=== PATIENT | female | born 1945 | race Caucasian/White ===

== ENCOUNTER 2018-02-25 02:20 | Outpatient (CLI) | payer OTHER, SELFPAY ==
[2018-02-25 11:19] LABS: Cholesterol 257 mg/dL (50-200); HDL Cholesterol 43 mg/dL (40-60); LDL CHOLESTEROL 175 mg/dL (<100); Triglyceride 198 mg/dL (30-150)
== END 2018-02-25 02:21 ==
PROVIDERS: PCP Family Medicine; Visit Provider Family Medicine
DX: E78.5 Hyperlipidemia, unspecified (principal)
CPT/HCPCS: 36415; 80061; 83721

== ENCOUNTER 2019-03-23 01:15 | Outpatient (CLI) | payer OTHER, SELFPAY ==
[2019-03-23 08:55] LABS: Hemoglobin A1C 5.6 % (4.5-6.2)
[2019-03-23 09:11] LABS: Calculated LDL 133 mg/dL; Cholesterol 221 mg/dL (50-200); HDL Cholesterol 34 mg/dL (40-60); Triglyceride 272 mg/dL (30-150)
== END 2019-03-23 01:35 ==
PROVIDERS: PCP Family Medicine; Visit Provider Nurse Practitioner
DX: Z13.1 Encounter for screening for diabetes mellitus (principal); E78.5 Hyperlipidemia, unspecified
CPT/HCPCS: 36415; 80061; 83036

== ENCOUNTER 2019-04-20 00:46 | Outpatient (CLI) | payer OTHER, SELFPAY ==
--- NOTE | 2019-04-20 16:12 | DI.MAMMO_ITS ---
EXAM: MG MAMMO SCREENING CLINICAL HISTORY: screening Z12.31. TECHNIQUE: Bilateral full field digital CC and MLO mammographic images were obtained with 3D tomosyn thesis and utilizing computer aided detection (CAD). COMPARISON: There are multiple priors with the most recent from 01/23/2017. FINDINGS: Masses/Architectural Distortion: None seen. Microcalcifications: No suspicious pleomorphic-type are seen. IMPRESSION: 1. No significant interval change with no specific features of malignancy noted. 2. Unless there is more urgent need, screening mammography is recommended, as per [employer] guidelines. ACR BI-RAD Category- 1 Negative Breast Density - Category B - Scattered areas of fibroglandular density A negative radiographic report should not delay biopsy if a dominant or clinically suspicious mass is present. Up to ten percent of cancers are not identified on mammography. A negative report may reinforce clinical impression. Adenosis and dense breasts may obscure an underlying neoplasm. False positive reports average 6 to 10%.
--- NOTE | 2019-04-20 16:12 | DI.DEXA_ITS ---
EXAM: XR DEXA BONE DENSITY W/WO LUIS EDUARDO INDICATION: SCREENING FOR OSTEOPOROSIS Z13.820. COMPARISON: No exams were available for comparison TECHNIQUE: 2D digital imaging was performed. FINDINGS: The lateral spine film shows no compression deformities. Evaluation of the left hip shows a total T-score of -2.6 and a Z-score of -0.9. This is consistent w ith osteoporosis and high fracture risk. Evaluation of the lumbar spine shows a total T-score of -1.6 and a Z-score of 0.6. This is consisten t with osteopenia and increased fracture risk. IMPRESSION: Osteoporosis in the left hip.
== END 2019-04-20 01:06 ==
PROVIDERS: PCP Family Medicine; Visit Provider Nurse Practitioner
DX: Z12.31 Encounter for screening mammogram for malignant neoplasm of breast (principal); Z13.820 Encounter for screening for osteoporosis
CPT/HCPCS: 77063; 77067; 77080

== ENCOUNTER 2020-03-16 04:33 | Outpatient (CLI) | payer OTHER, SELFPAY ==
[2020-03-16 13:43] LABS: BUN 22 mg/dL (7-18); CREATININE 0.87 mg/dL (0.55-1.02); Calcium 9.1 mg/dL (8.5-10.1); Calculated LDL 166 mg/dL (<100); Chloride 106 mmol/L (98-107); Cholesterol 245 mg/dL (<200); Glucose 92 mg/dL (74-106); HDL Cholesterol 43 mg/dL (40-60); Potassium 4.1 mmol/L (3.5-5.1); Sodium 141 mmol/L (136-145); Triglyceride 183 mg/dL (<150)
== END 2020-03-16 04:53 ==
PROVIDERS: PCP Family Medicine; Visit Provider Family Medicine
DX: I10 Essential (primary) hypertension (principal); E78.5 Hyperlipidemia, unspecified
CPT/HCPCS: 36415; 80048; 80061

== ENCOUNTER 2021-03-13 04:59 | Outpatient (CLI) | payer OTHER, SELFPAY ==
[2021-03-13 10:18] LABS: ALT 15 U/L (14-59); AST 13 U/L (15-37); Alkaline Phosphatase 77 U/L (46-116); Anion Gap 8.8 mmol/L (3-11); BUN 12 mg/dL (7-18); Bilirubin, Total 0.4 mg/dL (0.2-1.0); CO2 29.2 mmol/L (21.0-32.0); CREATININE 0.9 mg/dL (0.55-1.02); Calcium 9.6 mg/dL (8.5-10.1); Calculated LDL 145 mg/dL (<100); Chloride 104 mmol/L (98-107); Cholesterol 229 mg/dL (<200); Glucose 98 mg/dL (74-106); HDL Cholesterol 46 mg/dL (40-60); Potassium 4.3 mmol/L (3.5-5.1); Sodium 142 mmol/L (136-145); Total Protein 7.8 g/dL (6.4-8.2); Triglyceride 191 mg/dL (<150)
== END 2021-03-13 05:00 | disposition home or self-care (01) ==
LOC: LBO 04:59
DX: E78.5 Hyperlipidemia, unspecified (principal)
CPT/HCPCS: 36415; 80053; 80061

== ENCOUNTER 2021-03-20 01:21 | Outpatient (CLI) | payer OTHER, SELFPAY ==
--- NOTE | 2021-03-20 11:32 | DI.MAMMO_ITS ---
Exam(s) MAMMO SCREENING EXAM: MAMMO SCREENING CLINICAL HISTORY: screening,Z12.39 TECHNIQUE: Bilateral full field digital CC and MLO mammographic images were obtained with 3D tomosyn thesis and utilizing computer aided detection (CAD). COMPARISON: Available for comparison. FINDINGS: Masses/Architectural Distortion: None seen. Microcalcifications: No suspicious pleomorphic-type are seen. Skin Thickening/Nipple Retraction: None. IMPRESSION: 1. No significant interval change with no specific features of malignancy noted. 2. Unless there is more urgent need, screening mammography is recommended, as per [employer] guidelines. BI-RADS Category 1 - Negative Breast Density - Category B - Scattered areas of fibroglandular density Breast density category C or D implies that the patient has dense breast tissue. Dense breast tissue is very common and is not abnormal but dense breast tissue can make it harder to find cancer on a ma mmogram. Also, dense breast tissue may increase their breast cancer risk. This information about the result of the mammogram report was provided to the patient to raise their awareness. Use this report when you speak with the patient about their risks for breast cancer, which includes their family hist ory. At that time, you may recommend for more screening tests (Ultrasound or MRI) as they might be us eful based on their risk. A negative radiographic report should not delay biopsy if a dominant or clinically suspicious mass is present. Up to ten percent of cancers are not identified on mammography. A negative report may reinforce clinical impression. Adenosis and dense breasts may obscure an underlying neoplasm. False positive reports average 6 to 10%. Patient will receive a letter notifying them of these results.
== END 2021-03-20 01:41 ==
DX: Z12.31 Encounter for screening mammogram for malignant neoplasm of breast (principal)
CPT/HCPCS: 77063; 77067

== ENCOUNTER 2021-06-08 01:47 | Outpatient (CLI) | payer MEDICARE, SELFPAY ==
--- NOTE | 2021-06-08 10:23 | DI.RAD_ITS ---
Exam(s) XR KNEE LT 3V AP,LAT,BHUPINDER EXAM: XR KNEE LT 3V AP,LAT,BHUPINDER CLINICAL HISTORY: left knee pain, M25.562. TECHNIQUE: 2D digital imaging was performed. Three weightbearing views. COMPARISON: No exams were available for comparison FINDINGS: BONES: No acute fracture is present. No bony destructive lesion is seen. JOINTS: Severe narrowing of the medial femoral tibial joint, periarticular spurring and sclerosis. M ild spurring lateral femoral tibial joint and patellofemoral joint. Question of a small joint effusi on. SOFT TISSUE: Normal. 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 DATA REPOSITORY: RADIATION DOSE DELIVERED:
== END 2021-06-08 02:07 ==
DX: M25.562 Pain in left knee (principal); M17.12 Unilateral primary osteoarthritis, left knee
CPT/HCPCS: 73562

== ENCOUNTER → 2021-08-14 10:24 | Outpatient (BNVA) | payer MEDICARE, SELFPAY | PROVIDERS: Visit Provider Student in an Organized Health Care Education/Training Program | DX: M17.12 Unilateral primary osteoarthritis, left knee (principal) | CPT/HCPCS: 99203 ==

== ENCOUNTER 2022-02-15 09:46 | Outpatient (CLI) | payer MEDICARE, SELFPAY ==
--- NOTE | 2022-02-15 09:30 | DI.RAD_ITS ---
Exam(s) XR STANDING ALIGNMENT EXAM: XR STANDING ALIGNMENT CLINICAL HISTORY: eval alignment for TKA. TECHNIQUE: 2D digital imaging was performed. Four images were obtained. COMPARISON: CR XR KNEE LT 3V AP,LAT,BHUPINDER from 06/08/2021 FINDINGS: BONES: The hips are well maintained. There are marked degenerative changes again seen in the medial femoral tibial joint of the left knee. There is joint space narrowing and periarticular spurring pre sent. The right knee is well maintained. The ankles are well maintained.There is no significant leg length discrepancy. SOFT TISSUE: Normal. IMPRESSION: Marked osteoarthritis of the left knee. DATA REPOSITORY: RADIATION DOSE DELIVERED:
== END 2022-02-15 09:47 | disposition home or self-care (01) ==
LOC: DIORS 09:46
PROVIDERS: Visit Provider Student in an Organized Health Care Education/Training Program
DX: M17.12 Unilateral primary osteoarthritis, left knee (principal)
CPT/HCPCS: 99213; 77073

== ENCOUNTER 2022-02-18 02:30 | Outpatient (CLI) | payer MEDICARE, SELFPAY ==
[2022-02-18 14:53] LABS: Source Nasal/Nares
[2022-02-18 16:43] LABS: COVID-19 PCR Negative (Negative)
== END 2022-02-18 02:31 | disposition home or self-care (01) ==
LOC: LBO 02:30
PROVIDERS: Visit Provider Student in an Organized Health Care Education/Training Program
DX: Z20.822 Contact with and (suspected) exposure to COVID-19 (principal); Z01.818 Encounter for other preprocedural examination
CPT/HCPCS: 87635

== ENCOUNTER 2022-02-18 04:11 | Outpatient (CLI) | payer MEDICARE, SELFPAY ==
[2022-02-18 14:58] LABS: HCT 39.8 % (36.0-46.0); HGB 13.2 g/dL (11.2-15.7); MCH 29.1 pg (27.0-33.0); MCHC 33.2 % (32.0-36.0); MCV 88 fL (80-95); MPV 10.1 fL (8.0-11.0); Platelet Count 279 10^3/uL (130-400); RBC 4.54 10^6/uL (3.93-5.22); RDW-SD 38.9 fL
[2022-02-18 15:16] LABS: Anion Gap 11.2 mmol/L (3-11); BUN 19 mg/dL (7-18); CO2 24.8 mmol/L (21.0-32.0); Calcium 9.5 mg/dL (8.5-10.1); Chloride 101 mmol/L (98-107); Estimated GFR 54.05 (mL/min/1.73m2); Glucose 101 mg/dL (74-106); Sodium 137 mmol/L (136-145)
== END 2022-02-18 04:12 | disposition home or self-care (01) ==
PROVIDERS: Visit Provider Student in an Organized Health Care Education/Training Program
DX: M25.562 Pain in left knee (principal); M17.12 Unilateral primary osteoarthritis, left knee; Z01.818 Encounter for other preprocedural examination; Z01.812 Encounter for preprocedural laboratory examination
CPT/HCPCS: 36415; 80048; 85027

== ENCOUNTER 2022-02-20 06:55 | Day surgery (SDC) | payer MEDICARE, SELFPAY ==
[2022-02-20] VITALS (8 sets, daily range): BP systolic 89–138; BP diastolic 55–88; PULSE 72–87; RESP 12–19; TEMP 36–36.8; O2SAT 95–99; BMI 25.4
--- NOTE | 2022-02-20 06:58 | W.ANESPRE ---
General Info Date of Service Date Performed: 02/20/22 Height: 5 ft 3 in Weight: 65.317 kg Body Mass Index (BMI): 25.4 Surgical Procedure: Operation Date: 02/20/22 09:10 Proposed Procedure Side Surgeon p Knee Total Arthroplasty, Cemented CR Left Ronnell Mcintosh MD Meds Allergies and Home Medications Allergies Allergy/AdvReac Type Severity Reaction Status Date / Time No Known Allergies Allergy Verified 02/20/22 07:19 Home Medication Medication Instructions Recorded cholecalciferol (vitamin D3) 125 125 mcg PO DAILY 02/29/20 mcg (5,000 unit) capsule vitamin K2 40 mcg tablet 40 mcg PO DAILY 02/29/20 calcium carbonate 600 mg calcium 900 mg PO DAILY 06/26/20 (1,500 mg) tablet Current Visit Medications: Current Medications Generic Name Dose Route Start Last Admin Trade Name Freq PRN Reason Stop Dose Admin Acetaminophen 1,000 mg 02/20/22 06:00 Acetaminophen 500 Mg Tab PO 02/20/22 16:00 PREOP GALEN Celecoxib 400 mg 02/20/22 06:00 Celecoxib 200 Mg Cap PO 02/20/22 16:00 PREOP GALEN Gabapentin 300 mg 02/20/22 06:00 Gabapentin 300 Mg Cap PO 02/20/22 16:00 PREOP GALEN Tranexamic Acid 1,000 mg/ 60 mls @ 360 mls/hr 02/20/22 06:00 Sodium Chloride IVPB 02/20/22 16:00 PREOP GALEN Ringer's Solution 1,000 mls @ 80 mls/hr 02/20/22 06:00 IV 03/21/22 23:59 INFUSION GALEN Cefazolin Sodium/Dextrose 2 gm in 50 mls @ 100 mls/hr 02/20/22 06:00 Ancef Duplex IVPB 02/20/22 16:00 PREOP GALEN IV Miscellaneous Supplies 1 each 02/20/22 06:00 Iv Access IV 03/21/22 23:59 DIRECTED GALEN Sodium Chloride 0 ml 02/20/22 06:00 Normal Saline Flush 10 Ml Syr IV 03/21/22 23:59 PRN PRN Sodium Chloride 0 ml 02/20/22 06:00 Normal Saline 10 Ml Vial IJ 03/21/22 23:59 DIRECTED PRN Sterile Water 0 ml 02/20/22 06:00 Water,Injection,Sterile 10 Ml Vial IJ 03/21/22 23:59 DIRECTED PRN [facility] Active Problems Active Problems: Problem Status Onset Code Osteoarthritis of left knee M17.12 Sciatica of left side M54.32 Hyperlipidemia E78.5 Knee pain, left M25.562 Osteoporosis M81.0 Encounter for annual physical exam Z00.00 Anxiety 12/15/12 F41.9 Dizziness and giddiness 10/05/12 R42 Hemorrhoids 12/15/12 K64.9 Tobacco Smoking/Tobacco Use Status: Never Passive smoking exposure: Yes Second hand exposure: No Alcohol Alcohol Intake: current Alcohol intake frequency: a few times a month Alcohol type: beer Substance Use Substance use: Never Substance use type: does not use Vital Signs and Lab Results Lab Results Blood Type / Crossmatch: No Data to Display Complete Blood Count: White Blood Count 10.50 10^3/uL (4.4-10.8) 02/18/22 14:54 Red Blood Count 4.54 10^6/uL (3.93-5.22) 02/18/22 14:54 Hemoglobin 13.2 g/dL (11.2-15.7) 02/18/22 14:54 Hematocrit 39.8 % (36.0-46.0) 02/18/22 14:54 Platelet Count 279 10^3/uL (130-400) 02/18/22 14:54 Complete Metabolic Panel: Sodium Level 137 mmol/L (136-145) 02/18/22 14:54 Potassium Level 4.0 mmol/L (3.5-5.1) 02/18/22 14:54 Chloride Level 101 mmol/L (98-107) 02/18/22 14:54 Carbon Dioxide Level 24.8 mmol/L (21.0-32.0) 02/18/22 14:54 Blood Urea Nitrogen 19 mg/dL (7-18) H 02/18/22 14:54 Creatinine 1.0 mg/dL (0.55-1.02) 02/18/22 14:54 Estimated GFR/1.73 m2 54.05 (mL/min/1.73m2) 02/18/22 14:54 Calcium Level 9.5 mg/dL (8.5-10.1) 02/18/22 14:54 Glucose Level 101 mg/dL (74-106) 02/18/22 14:54 Liver Function Panel: No Data to Display Coagulation Panel: No Data to Display Cardiac Panel: No Data to Display Arterial Blood Gas: No Data to Display Venous Blood Gas: No Data to Display Pancreas Panel: No Data to Display Thyroid Panel: No Data to Display Infectious Disease: Coronavirus (COVID-19)(PCR) Negative (Negative) 02/18/22 14:42 Coronavirus 2019 Source Nasal/Nares 02/18/22 14:42 Blood Cultures: No Data to Display Toxicology Panel: No Data to Display Anesthesia Assessment and Plan Anesthesia History Personal History: No History of Anesthesia Complications Family History: No Family History of Anesthesia Complications Exercise Tolerance Exercise Tolerance: Metabolic Equivalents>4 Pertinent Negatives Pertinent Negatives: No Symptoms of GERD, No Major Cardiovascular Symptoms or Complaints, No Major Pulmonary Symptoms or Complaints and No History of CVA/TIA Cardiac & Pulmonary Exam Cardiac Exam: Normal S1/S2 Heart Sounds Pulmonary Exam: Clear Bilateral Breath Sounds Implantable Cardiac Device Does patient have a Pacemaker or an ICD?: No Airway Exam Known Difficult Airway: No Mallampati Class: 3 Mouth Opening: Normal (> 3cm) Thyromental Distance: Greater than 3 cm Neck Range of Motion: Full ROM Neck Circumference: Normal Teeth Condition: Normal Dentition ASA Classification ASA Score: ASA 2 Emergency Case?: No NPO Status NPO Status: NPO Clears >2 hours, Solids >8 hours Anesthesia Plan Resuscitation Status: Full Code Anesthesia Technique: Spinal Anesthesia Airway Planned: Natural Airway Pain Management: Surgeon and patient request nerve block Monitors Used: Standard Monitors
[2022-02-20] MEDS: Acetaminophen 500 MG TAB 1000 MG PO ×2 (07:46→07:47)
[2022-02-20] MEDS: Gabapentin 300 MG CAP PO (07:46)
[2022-02-20] MEDS: Celecoxib 200 MG CAP 400 MG PO (07:47)
[2022-02-20] MEDS: Lactated Ringers 1,000 ML 80 ML IV (08:06)
--- NOTE | 2022-02-20 09:29 | W.ANESNERVE ---
Nerve Block Single Injection Procedure Date and Time Date Performed: 02/20/22 Procedure Start: 08:52 Location Where Procedure Performed Procedure Location: Day Surgery Unit Reason Performed: Postoperative Analgesia Requesting Provider: Ronnell Mcintosh Timeout Performed Timeout Performed: Yes Monitoring Used ECG, Blood Pressure, SpO2 and See EMR for corresponding vital signs Sterility Sterility: Hand Hygiene, Surgical Cap, Surgical Mask, Sterile Gloves and Chlorhexidine Sedation Given During Procedure Sedation Given (Indicate Dose Given): No Sedation given Patient Mental Status Patient Mental Status: Awake Nerve Block 1st Nerve Block: Laterality: Left Block Type: Adductor Canal Needle / Catheter Used: 100mm SonoPlex II Local Anesthetic Bolus (Indicate Dose Given): Lidocaine used for local infiltration of skin and Bupivacaine 0.25% Dose:: 15 Additives (Indicate Dose Given): Precedex Dose:: 60cmg Ultrasound: Sterile probe cover and gel used Ultrasound Image Saved?: Yes Nerve Stimulator: Not Used Paresthesia: None Post Procedure Pain score (0-10): 0 Procedure Tolerated: No Complications Procedure Outcome: Successful Performed By: Alice Cm Supervised By: Servando Power
[2022-02-20] MEDS: ceFAZolin 2 GM/50 ML BAG IVPB (09:50)
--- NOTE | 2022-02-20 11:39 | PDOC.DSDIS_ITS ---
Discharge Plan Disposition Patient Disposition: HOME Condition: Good Discharge Details Reason For Visit: Left Knee DJD Attending Provider: Ronnell Mcintosh Primary Care Provider: Alix Guerrero Home Meds and New Rx's Prescriptions: New celecoxib 200 mg capsule 200 mg PO BID PRN (Reason: pain) Qty: 60 1RF aspirin 81 mg tablet,delayed release (DR/EC) 81 mg PO BID Qty: 60 0RF acetaminophen 500 mg tablet 1,000 mg PO Q8H PRN (Reason: pain) Qty: 90 3RF pantoprazole 40 mg tablet,delayed release (DR/EC) 40 mg PO DAILY Qty: 30 0RF docusate sodium [Colace] 100 mg capsule 100 mg PO BID PRNQty: 10 0RF oxycodone 5 mg tablet 5 mg PO Q4H Qty: 15 0RF Continued cholecalciferol (vitamin D3) 125 mcg (5,000 unit) capsule 125 mcg PO DAILY vitamin K2 40 mcg tablet 40 mcg PO DAILY calcium carbonate 600 mg calcium (1,500 mg) tablet 900 mg PO DAILY l-theanine 200 mg PO DAILY Qty: 180 5RF Discharge Instructions Additional Instructions: Total Knee Discharge Instructions Activity: The most important activity is to walk. You should try to take short walks a few times a day. It is important that when resting you work on keeping the knee straight. Avoid putting a pillow behind the knee as this will encourage flexion. Work on range of motion exercises as provided by Physical Therapy. - Start outpatient physical therapy within 2 weeks. - You should wear the BERTHA hose on both legs for 2 weeks. You may remove these at night. You may also use any compression sock in place of the BERTHA hose. - Utilize [employer] to review exercises, see videos on exercises and obtain basic information pertaining to your surgery and your recovery. Dressing: Remove the Al wrap by 2 days after your surgery and put on the BERTHA stocking given to you from the hospital. Keep the surgical dressing (underneath the AL wrap) in place for at least one week. After the first week it may be removed and replaced with light gauze and tape or nothing. The wound and dressing may get wet after 3 days but avoid soaking the dressing or otherwise it will need to be changed. Many people prefer covering the dressing with cling wrap (saran wrap) to minimize it from getting soaked. If it gets wet, just pat dry. If it starts to peel off then it will need to be changed. Medications: - You should take Tylenol and anti-inflammatory Celebrex as your primary pain control medications. If the Celebrex is too expensive or not covered, please call the office for another alternative (Advil/Ibuprofen or Naproxen/Aleve) - You have been prescribed a stronger pain medication Oxycodone for breakthrough pain, take as needed as prescribed. - You have also been prescribed a stomach acid reduction agent Pantoprozole to help reduce stomach acid and reflux. - You will be taking Aspirin 81mg twice a day for DVT prevention unless instructed otherwise. - If you have constipation you should take Colace or Miralax (both [id number]). It takes most people 3-4 days to have a bowel movement. Follow-up: 2 weeks If you have any acute concerns or questions, please do not hesitate to contact the office at [phone]. You may contact Dr. Mcintosh with any questions after hours through the hospital at [phone] or on his cell phone at [phone]. Referrals: Ronnell Mcintosh MD [ [facility] STAFF PHYSICIAN] - Equipment/Supplies: Walker Activity:: Activity as Tolerated Remove Dressings/Wound Care:: Do Not Remove Shower/Bathe:: 72 hours Diet:: As Tolerated Discharge Orders Discharge Orders: Discharge Order (Routine); Ordered 02/20/22 Ordered By: Ronnell Mcintosh
--- NOTE | 2022-02-20 11:44 | W.PM.OP ---
Date of service: 02/20/22 Time of Service: 11:40 Operative Note Operative Note DATE OF PROCEDURE: 02/20/22 PRE-OP DIAGNOSIS: Left Knee Osteoarthritis POST-OP DIAGNOSIS: same PROCEDURE: Left Total Knee Replacement SURGEON: Ronnell Mcintosh SLITTER CREASER SLOTTER OPERATOR: Ronnell Mcintosh ANESTHESIA TYPE: Spinal Refer to Anesthesia Record ESTIMATED BLOOD LOSS: 150 PATHOLOGY: none sent COMPLICATIONS: None Patient was transported to: PACU Patient's condition: stable Implants: 1. Depuy Attune Cruciate Retaining Femoral Component, Size 6 2. Depuy Attune Rotating Platform Tibial Component, Size 4 3. Depuy Attune 6x8mm CR,RP Poly 4. Depuy Attune Patellar Component, Size 35 Indications: I have seen Anne in clinic for symptoms of knee arthritis, confirmed with radiographic findings. She has exhausted nonoperative methods and was having significant limitations in daily function and desired better function and less pain. I discussed the technical details of a knee replacement. I explained the risks of the procedure to include, but not limited to, bleeding, infection, pain, stiffness, fracture, damage to nerves and vessels, damage to muscles and tendons, loosening, need for repeat procedure, blood clot and cardiopulmonary demise. Despite these risks, Anne elected to proceed. Findings: There was significant signs of arthritis throughout the knee, focused mostly on the medial aspect with tibial varus. Procedure Description: Anne was greeted in the preoperative holding area where the correct side was identified and marked. The consent was reviewed with the patient and signed. The history and physical was updated. All questions were answered. Preoperative mediacations were administered: Acetaminophen 1000mg, Celebrex 400mg, and Gabapentin 300mg. An adductor canal block was then administered by the anesthesia team in the PACU. Anne was taken back to the operating room. A spinal anesthestic was then administered. The patient was placed into the supine position on the operating room table. A nonsterile tourniquet was placed high onto the leg but only used for cementing. Posts were placed for positioning during the procedure. All bony prominences were well padded. Prophylactic antibiotics in the form of Cefazolin were administered. 1g of Tranxemic Acid was given intravenously within 30 minutes of incision. The left leg was then prepped with Chloraprep and draped in a standard fashion with impervious stockinette and extremity drape. A second prep with Chloraprep was performed prior to placing Ioband. A timeout to confirm correct identity, side and site, procedure, allergies, anesthesia, and medical concerns was performed. With the knee in some flexion, a midline incision was made overlying the knee. Full thickness skin flaps were raised once the extensor mechanism was encountered. These were raised medially and laterally. Any bleeding was controlled with electrocautery. Once the extensor mechanism was fully exposed, a medial parapatellar arthrotomy was performed in a flexed position. All bleeding from the arthrotomy and the geniculate arteries was coagulated. A medial subperiosteal peel was performed with electrocautery to the midcoronal plane. Due to the significant varus deformity the entire medial tibial plateau was exposed. The fat pad was removed while keeping the patellar tendon protected. The anterior distal femur synovium was removed for later visualization. The ACL and PCL were resected and the anterior horn of the lateral meniscus was transected. The knee was then flexed with the patella everted. Large osteophytes from the tibia were removed. Large osteophytes from the femur were removed. Using a step drill, and based on preoperative templating, the femoral canal was entered. This was done with a step drill without any difficulty. The intramedullary distal femoral cut guide was inserted, set to a 6 degree valgus cut and 8mm cut thickness. The distal femoral cut guide was then held in position and pinned. With the soft tissues protected, the distal cut was performed. This was passed over a few times to ensure a planar cut. I then turned attention to the tibia. The extramedullary guide was placed onto the leg. The distal aspect was slid medial to adjust for position of center of ankle and stay in line with shaft of the tibia. Approximately 3-5 degrees of posterior slope was kept in the proximal cutting guide. The center of the guide was aligned with the PCL. The stylus was used to assess cut thickness. The medial side, most involved side, was set for a 3mm cut. This was then held in position and pinned into place with 2 additional pins and a cross pin for stability. The medial and lateral collateral ligaments were protected and the cut was performed. With this completed, it was assessed and noted to be of appropriate dimensions. The guide was removed. A spacer block was inserted and the knee was brought into extension. The 7mm spacer block provided full extension, without hyperextension and with stability of both the medial and lateral collateral ligaments was assessed. The pins from the femur and the tibia were then removed. The distal femur was then sized. The anterior stylus was placed onto the lateral ridge of the anterior femur. This indicated a size 6 femur. The external rotation of the guide was adjusted to 3 degrees to match the epicondylar axis, perpendicular to Asha?s line. The 4-in-1 cutting guide was the placed. The posterior medial femur cut was evaluated and appeared of good thickness. The spacer block was inserted underneath the cutting guide and stability was confirmed in 90 degrees of flexion. An maycol wing was used to confirm appropriate position of the anterior cut to avoid notching. This cutting guide was ensured to be flush on the cut surface and then pinned into place with headed pins. While protecting the soft tissues, quad tendon, and collateral ligaments, the anterior and posterior cuts were performed with a saw. The central two pins were removed and the posterior and anterior chamfers were cut next. The notch-cutting guide was placed. This was pinned to lateralize the femoral component as much as possible while keeping it flush on the cut surface. This was then pinned into position. A reciprocating saw was used to make the small notch cut. A trial CR femoral component was then inserted, impacted down to the cut surfaces, and the lug holes were drilled. A provisional trial tibial component was placed and the knee was brought through range of motion. The polyethylene was trialed until there was good flexion and extension with excellent stability to the medial and lateral collaterals. The patella was tracking without thumbs. The tibial cut surface was fully exposed. The medial and lateral menisci were removed. The tibia was then sized as a 4. The tibia had been previously marked during trialing to correspond to the center of the tibial component to help with rotation. The trial was aligned to this lesly, approximately rotated to the medial 1/3rd of the tibial tubercle. The trial was pinned into place. The tibia was prepared with a reamer and a keel punch. The knee was then brought into extension and the patella was measured as 22mm. Using the patellar clamp and cut guide, this was resected to a flat surface with at least 13mm of thickness remaining. The size 35 patella fit the best. This was oriented and then clamped into position. The lugs were drilled. The trial components were removed. The final components, except for the polyethylene were opened on the back table. The periosteal and capsular tissues, especially posteriorly, around the knee were then systematically injected with a periarticular cocktail consisting of 246mg of Ropivacaine, 0.5mg of Epinephrine, 0.08mg of Clonidine, and 30mg of Ketorolac, diluted to 100cc.. The tourniquet was then inflated to 275mmHg. The knee was thoroughly irrigated with a pulse lavage and dried. On the back table, with the implants opened, the cement was mixed. 2 batches of medium viscosity cement were prepared with vacuum assistance. After the cement was ready it was placed on to the back side of the tibial component. A small amount was placed onto the posterior flange of the femur. Cement was manual pressurized and impregnated into the cut surface of the tibia. The tibial component was then inserted into the cut surface and impacted into position. Excess cement was removed and the component was reimpacted. Again, excess cement was removed and our attention was then turned to the femur. The femoral cut surface was once again dried and cement was manually impacted into the cut surface. The femoral component was lined with the lug holes and impacted. Excess cement was removed. It was ensured to be down against the cut surface. The trial polyethylene was then inserted and the leg was brought out into full extension for the duration of the cement curing process, approximately 18min. Cement was lastly manually impacted into the cut surface of the patella and the patellar button was clamped into position and held. During this process attention was turned to the gutters of the knee and for all interfaces for any excess cement. While the cement was hardening, the knee was irrigated with Surgiphor Betadine solution. It was allowed to sit in the knee for 3 minutes and then it was thoroughly irrigated with saline. After the cement had finally cured, approximately 18min, the clamp was removed from the patella and the knee was taken through range of motion. A size 8mm polyethylene component provided the best range of motion and stability with less than 2mm gapping with medial and lateral stress and full extension without significant hyperextension. The patella was tracking with a no-thumbs technique. The trial poly was removed and once again the knee was checked for any loose, excess, or errant cement. The poly component was then inserted into position after cleaning and drying the tibial tray. The capsule was then reapproximated with a No. 1 Vicryl at multiple locations. The capsule was finally closed with a No. 2 Stratafix, barbed suture. The tourniquet was then released and the arthrotomy appeared watertight without significant bleeding. The second dosing of 1g TXA was started. Deep tissues were then reapproximated with 0 Vicryl and 2-0 Vicryl. The skin was closed with a running 3-0 Monocryl in a subcuticular fashion. This was reinforced with skin glue. A Mepilex silver dressing was applied along with a [id number] PIO wrap. A CryoCuff was applied. Anne was transferred to the hospital bed without difficulty an suffering no apparent complication. Anne has a good prognosis. Physical therapy will start today and without restrictions, weight-bearing as tolerated. Aspirin 81mg BID will be used for DVT prophylaxis.
--- NOTE | 2022-02-20 12:39 | W.ANESPOSTOP ---
Postoperative Evaluation Date, Time and Location Date Performed: 02/20/22 Time Performed: 12:40 Patient Location: Day Surgery Unit Vital Signs Most Recent Imported Vital Signs: Most Recent Vital Signs Temp Pulse Resp BP Pulse Ox 36.3 C L 73 16 103/69 96 02/20/22 12:10 02/20/22 12:10 02/20/22 12:10 02/20/22 12:10 02/20/22 12:10 Pain Score Most Recent Pain Score: Most Recent Pain Score Pain Level 0 02/20/22 12:10 Assessment Mental Status: Awake (Alert & Oriented to Patient Baseline) Airway and Respiratory Function: Patent airway with normal (patient baseline) respiratory exam Cardiovascular Function: Hemodynamically Stable Hydration Status: Adequately Hydrated Nausea & Vomiting: No Nausea or Vomiting Pain: Pt. Denies Any Pain Peripheral Nerve Block: Regional nerve block not resolved at time of post operative discharge
--- NOTE | 2022-02-20 13:07 | PT.INIE ---
Date of service: 02/20/22 Time of Service: 13:07 PT Notes Visit Reasons: [id number] Physical Therapy Day Surgery Initial Evaluation Date: 02/20/2022 Referring Doctor: Ronnell Mcintosh MD PT Orders: PT CONSULT: S/P Ortho surgery. S/P L TKA Precautions: WBAT on left LE with AD. Patient Profile/Admitting Diagnosis: Mariana is a 77-year-old female with degenerative joint disease of the left knee and status post left total knee arthroplasty on postoperative day 0. PMHX: All Active Problems?(Updated 08/14/21 @ 11:02 by SAAD Montes) Osteoarthritis of left knee (Acute) Sciatica of left side (Acute) Hyperlipidemia (Acute) Knee pain, left (Acute) Osteoporosis (Chronic) Hips. Osteopenia spineEncounter for annual physical exam (Acute) CPE yearly call earlier for new or concerning s/sAnxiety (Acute 12/15/12) Dizziness and giddiness (Acute 10/05/12) Hemorrhoids (Acute 12/15/12) Social History/Home Situation: Lives with in a private home with 4 steps to enter and rails on both sides. Has had no falls in the past year. Independent with all aspects of ADLs prior to surgery. Equipment Owned/DME: None Subjective: Agreeable to PT consult. [place] like her left knee was going to buckle when she initially stood up felt more after several steps. Objective: General Observation: Supine in bed. Straps to left LE. Cryocuff to left knee. Mental Status: Alert and oriented x4 Pain: 2-3/10 in the left knee ROM: Right Lower Extremity: Hip flexion WFL. Hip abduction WFL. Knee flexion 0-100 degrees. Knee extension 100 to 0 degrees ankle dorsiflexion WFL. Ankle plantarflexion WFL. Left Lower Extremity: Hip flexion WFL. Hip abduction WFL. Knee flexion WFL. Ankle dorsiflexion WFL. Ankle plantarflexion WFL. Strength: Right Lower Extremity: Hip flexors 5/5. Hip abductors 5/5. Knee flexors 4/5. Knee extensors 4/5. Ankle dorsiflexors 5/5. Ankle plantarflexors 5/5. Left Lower Extremity:Hip flexors 5/5. Hip abductors 5/5. Knee flexors 5/5. Knee extensors 5/5. Ankle dorsiflexors 5/5. Ankle plantarflexors 5/5. Sensation: Intact as to pain and light pressure in bilateral lower extremities Bed Mobility/Transfers: Supine to sit satnd by assist Sit to stand contact guard assist Stand to sit standby assist Bed to chair standby assist Gait: Tolerated level surface ambulation of 150 feet using front wheeled walker with step to gait pattern requiring standby assist. Nurse Maryuri providing standby assist for safety. No loss of balance. No buckling of the left knee. No shortness of breath. Denies headache, chest pain throughout session. Good quad activation. Stairs: Patient states that she is all set with stairs at home. THERA EX: L SLR x 10 LAQs x 10 seated hip flexion x 10 Ankle DF/PF x 10 Glutes sets x 10 Quads sets x 10 Balance: Static Sitting: Normal Dynamic Sitting: Normal Static Standing: Fair Dynamic Standing: Fair Special Tests: Mobility Limitations Standardized Measure [facility] AM-PAC 6 clicks Basic Mobility Inpatient Short Form: Raw Score: 21 CMS Score: 29% deficit Informed Consent/Education: Patient instructed in purpose of PT consult. Packet containing exercise protocol has been given to patient. Education and training on initial set of exercises that can be done at home have been completed with patient. Assessment: Patient presents with clinical signs and symptoms consistent with current/admitting diagnoses that have resulted to mobility limitations, gait instability, generalized weakness, and impairment of motor control as demonstrated by the following impairment level findings: 1. Decreased strength to left knee major muscle groups 2. Impaired standing balance 3. Limitation of joint range of motion in left knee Impairments are contributing to the following functional limitations: 1. Inability to safely ambulate without assistive device 2. Increase completion time for mobility ADL performance 3. Increased fall risk Patient is assessed as a 42642 moderate complexity based on the following: History: 77-year-old female with impairment level findings, functional limitations, and past medical history as indicated above Examination: Demonstrable impairment in strength, balance, and mobility level with underlying impairments and functional limitations as documented above Presentation: Evolving Decision Makin moderate complexity Goals: N/A. PT evaluation and 1-2 treatment sessions only for functional mobility training using recommended AD and for HEP instruction. Plan of Care/Treatment Plan: N/A. PT evaluation and 1-2 treatment session only for functional mobility training using recommended AD and for HEP instruction. DISCHARGE RECOMMENDATIONS: Home when medically cleared by orthopedic surgeon. Will benefit from outpatient PT services in order to facilitate return to independent ADL performance and independent community ambulation without assistive device. TREATMENT CODE/TIME: 61266 x 20 minutes, 9753 0 x 18 minutes beginning at 13:07 PM. Thank you for the opportunity to participate in the care of this patient. Rosy Whitney PT, DPT, CLT [facility] [place], [place]
== END 2022-02-20 14:36 | disposition home or self-care (01) ==
PROVIDERS: Visit Provider Student in an Organized Health Care Education/Training Program
PROC: (CPT 27447; principal; 2022-02-20 09:00)
DX: M17.12 Unilateral primary osteoarthritis, left knee (principal); M54.32 Sciatica, left side; E78.5 Hyperlipidemia, unspecified; M81.0 Age-related osteoporosis without current pathological fracture
CPT/HCPCS: 27447; C1776; 76942; 97162; 97530; J0690; J1100; J2250; J2370; J2405; J2704

== ENCOUNTER 2022-03-08 09:52 | Outpatient (CLI) | payer MEDICARE, SELFPAY ==
--- NOTE | 2022-03-08 09:00 | DI.RAD_ITS ---
Exam(s) XR KNEE LT 1V XR STANDING ALIGNMENT EXAM: XR KNEE LT 1V CLINICAL HISTORY: left knee f/u. TECHNIQUE: 2D digital imaging was performed. Standing AP views were performed from the pelvis throu gh the ankles. A lateral view of the left knee was performed. COMPARISON: CR XR KNEE LT 3V AP,LAT,BHUPINDER from 06/08/2021 CR XR STANDING ALIGNMENT from 02/15/2022 CR XR STANDING ALIGNMENT from 03/08/2022 FINDINGS: BONES: No acute fracture is present. No bony destructive lesion is seen. There is mild overall leg le ngth discrepancy at the level of the femoral heads with the right femoral head projecting 10 millimet ers superior to the left. JOINTS: Knees: Left knee: The patient is status post placement of a left total knee prosthesis. The alignment appears satisfactory. The right knee joint spaces are maintained. Minimal periarticular s purring. The ankle joints are unremarkable. There is bilateral acetabular spurring. The hip joint spaces are well maintained. There is some spurring at the SI joints. SOFT TISSUE: Normal. IMPRESSION: Status post placement of left total knee prosthesis. Mild leg length discrepancy. DATA REPOSITORY: RADIATION DOSE DELIVERED:
== END 2022-03-08 09:53 | disposition home or self-care (01) ==
LOC: DIORS 09:53
PROVIDERS: Visit Provider Physician Assistant Surgical
DX: Z47.1 Aftercare following joint replacement surgery; Z96.659 Presence of unspecified artificial knee joint
CPT/HCPCS: 73560; 77073

== ENCOUNTER → 2022-04-12 08:47 | Outpatient (BNVA) | payer MEDICARE, SELFPAY | PROVIDERS: Visit Provider Student in an Organized Health Care Education/Training Program | DX: Z47.1 Aftercare following joint replacement surgery (principal); Z96.652 Presence of left artificial knee joint ==

== ENCOUNTER → 2022-05-24 09:55 | Outpatient (BNVA) | payer MEDICARE, SELFPAY | PROVIDERS: Visit Provider Student in an Organized Health Care Education/Training Program | DX: Z47.1 Aftercare following joint replacement surgery (principal); Z96.652 Presence of left artificial knee joint ==

== ENCOUNTER 2023-02-21 10:51 | Outpatient (CLI) | payer MEDICARE, SELFPAY ==
--- NOTE | 2023-02-21 11:29 | DI.RAD_ITS ---
Exam(s) XR KNEE LT 2V AP,LAT EXAM: XR KNEE LT 2V AP,LAT INDICATION: ANNUAL F/U L TKA. COMPARISON: CR XR KNEE LT 1V from 03/08/2022 CR XR STANDING ALIGNMENT from 03/08/2022 TECHNIQUE: 2D digital imaging was performed. Two views. FINDINGS: There has been no change in the alignment of the total knee prosthesis. There are no abnormal surrou nding bony lucencies. DATA REPOSITORY: RADIATION DOSE DELIVERED:
== END 2023-02-21 10:52 | disposition home or self-care (01) ==
LOC: DIORS 10:52
PROVIDERS: PCP Nurse Practitioner Family; Referring Provider Nurse Practitioner Family; Visit Provider Student in an Organized Health Care Education/Training Program
DX: Z47.1 Aftercare following joint replacement surgery; Z96.652 Presence of left artificial knee joint; G56.01 Carpal tunnel syndrome, right upper limb; G56.02 Carpal tunnel syndrome, left upper limb
CPT/HCPCS: 99213; 73560

== ENCOUNTER 2024-01-12 15:09 | Outpatient (CLI) | payer MEDICARE, SELFPAY ==
--- NOTE | 2024-01-12 13:00 | DI.RAD_ITS ---
Exam(s) XR KNEE RT 4V AP,LAT,BHUPINDER,PAT EXAM: XR KNEE RT 4V AP,LAT,BHUPINDER,PAT CLINICAL HISTORY: R knee pain. TECHNIQUE: 2D digital imaging was performed of the right knee. Four views obtained. Merchant, AP, la teral and PA tunnel views were obtained. COMPARISON: CR XR STANDING ALIGNMENT from 03/08/2022 FINDINGS: BONES: No acute fracture is present. No bony destructive lesion is seen. JOINTS: There is [id number] narrowing in the medial femoral tibial joint. There are small oste ophytes seen in the medial femoral tibial joint. There is a small joint effusion. SOFT TISSUE: Soft tissue calcifications are seen adjacent to the lateral femoral condyle and the late ral tibial plateau which appear chronic. IMPRESSION: Mild degenerative changes of the right knee predominantly involving the medial femoral tibial joint. DATA REPOSITORY: RADIATION DOSE DELIVERED:
== END 2024-01-12 15:10 | disposition home or self-care (01) ==
LOC: DIORS 15:09
PROVIDERS: PCP Nurse Practitioner Family; Referring Provider Nurse Practitioner Family; Visit Provider Student in an Organized Health Care Education/Training Program
DX: M25.569 Pain in unspecified knee (principal); M17.11 Unilateral primary osteoarthritis, right knee; Z96.652 Presence of left artificial knee joint
CPT/HCPCS: 99213; 73564

== ENCOUNTER 2024-02-12 02:32 | Outpatient (CLI) | payer MEDICARE, SELFPAY ==
[2024-02-12 15:05] LABS: HCT 40.3 % (36.0-46.0); HGB 13.1 g/dL (11.2-15.7); MCH 28.9 pg (27.0-33.0); MCHC 32.5 % (32.0-36.0); MCV 89 fL (80-95); MPV 10.4 fL (8.0-11.0); Platelet Count 257 10^3/uL (130-400); RBC 4.53 10^6/uL (3.93-5.22); RDW 12.1 % (11.7-14.6); RDW-SD 39.7 fL; WBC 9.66 10^3/uL (4.4-10.8)
[2024-02-12 15:42] LABS: Anion Gap 9.7 mmol/L (3-11); BUN 20 mg/dL (7-18); CO2 28.3 mmol/L (21.0-32.0); Calcium 9.4 mg/dL (8.5-10.1); Chloride 103 mmol/L (98-107); Estimated GFR 58.02 (mL/min/1.73m2); Glucose 87 mg/dL (74-106); Sodium 141 mmol/L (136-145)
== END 2024-02-12 02:33 | disposition home or self-care (01) ==
LOC: LBO 02:32
PROVIDERS: PCP Nurse Practitioner Family; Visit Provider Student in an Organized Health Care Education/Training Program
DX: M17.11 Unilateral primary osteoarthritis, right knee (principal); Z01.818 Encounter for other preprocedural examination
CPT/HCPCS: 36415; 80048; 85027

== ENCOUNTER 2024-02-18 08:26 | Day surgery (SDC) | payer MEDICARE, SELFPAY ==
--- NOTE | 2024-02-17 19:05 | W.ANESPRE ---
General Info Date of Service Date Performed: 02/18/24 Height: 5 ft 3 in Weight: 67.132 kg Body Mass Index (BMI): 26.2 Surgical Procedure: Operation Date: 02/18/24 10:10 Proposed Procedure Side Surgeon p Knee Total Arthroplasty, Cementless CR Right Ronnell Mcintosh MD Meds Allergies and Home Medications Allergies Allergy/AdvReac Type Severity Reaction Status Date / Time No Known Allergies Allergy Verified 02/18/24 08:41 Home Medication ?Medication ?Instructions ?Recorded cholecalciferol (vitamin D3) 125 125 mcg PO DAILY 02/29/20 mcg (5,000 unit) capsule vitamin K2 40 mcg tablet 40 mcg PO DAILY 02/29/20 calcium 600 mg capsule 600 mg PO DAILY 02/21/23 acetaminophen 500 mg tablet 1,000 mg (2 x 500 mg) PO TID #90 02/18/24 tabs aspirin 81 mg tablet,delayed 81 mg PO BID #60 tabs 02/18/24 release celecoxib 200 mg capsule 200 mg PO BID #60 caps 02/18/24 dexamethasone 4 mg tablet 4 mg PO DAILY #2 tabs 02/18/24 gabapentin 300 mg capsule 300 mg PO QHS #14 caps 02/18/24 oxycodone 5 mg tablet 5 mg PO Q4H PRN pain #20 tabs 02/18/24 pantoprazole 40 mg tablet,delayed 40 mg PO DAILY #30 tabs 02/18/24 release Current Visit Medications: Current Medications Generic Name Dose Route Start Last Admin Trade Name Freq PRN Reason Stop Dose Admin Acetaminophen 1,000 mg 02/18/24 06:00 Acetaminophen 500 Mg Tab PO 02/18/24 23:59 PREOP GALEN Celecoxib 400 mg 02/18/24 06:00 Celecoxib 200 Mg Cap PO 02/18/24 23:59 PREOP GALEN Gabapentin 300 mg 02/18/24 06:00 Gabapentin 300 Mg Cap PO 02/18/24 23:59 PREOP GALEN Ringer's Solution 1,000 mls @ 80 mls/hr 02/18/24 06:00 IV 02/18/24 23:59 INFUSION GALEN Cefazolin Sodium/Dextrose 2 gm in 50 mls @ 100 mls/hr 02/18/24 06:00 Ancef Duplex IVPB 02/18/24 23:59 PREOP GALEN Tranexamic Acid/Sodium Chloride 1,000 mg in 100 mls @ 600 mls/hr 02/18/24 06:00 IVPB 02/18/24 23:59 PREOP GALEN IV Miscellaneous Supplies 1 each 02/18/24 06:00 Iv Access IV 02/18/24 23:59 DIRECTED GALEN Sodium Chloride 0 ml 02/18/24 06:00 Normal Saline Flush 10 Ml Syr IV 02/18/24 23:59 PRN PRN Sodium Chloride 0 ml 02/18/24 06:00 Normal Saline 10 Ml Vial IJ 02/18/24 23:59 DIRECTED PRN Sterile Water 0 ml 02/18/24 06:00 Water,Injection,Sterile 10 Ml Vial IJ 02/18/24 23:59 DIRECTED PRN PFSH Active Problems Active Problems: Problem Status Onset Code Osteoarthritis of right knee Acute M17.11 Urinary incontinence Acute R32 Pelvic prolapse Acute N81.9 Left carpal tunnel syndrome Acute G56.02 Right carpal tunnel syndrome Acute G56.01 Sciatica of left side Acute M54.32 Hyperlipidemia Acute E78.5 Osteoporosis Chronic M81.0 Encounter for annual physical exam Acute Z00.00 Anxiety Acute 12/15/12 F41.9 Dizziness and giddiness Acute 10/05/12 R42 Hemorrhoids Acute 12/15/12 K64.9 Medical History Medical History Comments:: Pt reports she hasn't had anesthesia in the past. She reports she doesn't want to be Knocked out and has questions for Anesthesia. Pt is anxious. Surgical History Surgical History S/P anterior colporrhaphy (12/02/23) Partial vaginectomy, LeFort colpoclesis, posterior colpoperineorrhaphy, trans-obsturator mid urethral polypropylene sling History of total left knee replacement (TKR) (02/20/22) Tobacco Smoking/Tobacco Use Status: Never Passive smoking exposure: Yes Second hand exposure: No Alcohol Alcohol Intake: current Alcohol intake frequency: a few times a month Alcohol type: beer Substance Use Substance use: Never Substance use type: does not use Prental History History 2 Para 2 Hx # Term Pregnancies 2 Multiple births Hx # Pregnancies Ectopic pregnancies AB induced Hx Number of Living Children 2 AB spontaneous Vital Signs and Lab Results Vital Signs Most Recent Vital Signs in EMR: Temp Pulse Resp BP Pulse Ox 36.6 C 84 20 140/81 96 02/18/24 08:41 02/18/24 08:41 02/18/24 08:41 02/18/24 08:41 02/18/24 08:41 Lab Results Blood Type / Crossmatch: No Data to Display Complete Blood Count: White Blood Count 9.66 10^3/uL (4.4-10.8) 02/12/24 14:45 Red Blood Count 4.53 10^6/uL (3.93-5.22) 02/12/24 14:45 Hemoglobin 13.1 g/dL (11.2-15.7) 02/12/24 14:45 Hematocrit 40.3 % (36.0-46.0) 02/12/24 14:45 Platelet Count 257 10^3/uL (130-400) 02/12/24 14:45 Complete Metabolic Panel: Sodium 141 mmol/L (136-145) 02/12/24 14:45 Potassium 4.0 mmol/L (3.5-5.1) 02/12/24 14:45 Chloride 103 mmol/L (98-107) 02/12/24 14:45 Carbon Dioxide 28.3 mmol/L (21.0-32.0) 02/12/24 14:45 BUN 20 mg/dL (7-18) H 02/12/24 14:45 Creatinine 1.0 mg/dL (0.55-1.02) 02/12/24 14:45 Est GFR (CKD-EPI 2020) 58.02 (mL/min/1.73m2) 02/12/24 14:45 Calcium 9.4 mg/dL (8.5-10.1) 02/12/24 14:45 Glucose 87 mg/dL (74-106) 02/12/24 14:45 Liver Function Panel: No Data to Display Coagulation Panel: No Data to Display Cardiac Panel: No Data to Display Arterial Blood Gas: No Data to Display Venous Blood Gas: No Data to Display Pancreas Panel: No Data to Display Thyroid Panel: No Data to Display Infectious Disease: No Data to Display Blood Cultures: No Data to Display Toxicology Panel: No Data to Display Anesthesia Assessment and Plan Anesthesia History Personal History: No History of Anesthesia Complications Family History: No Family History of Anesthesia Complications Exercise Tolerance Exercise Tolerance: Metabolic Equivalents>4 Cardiac & Pulmonary Exam Cardiac Exam: Normal S1/S2 Heart Sounds Pulmonary Exam: Clear Bilateral Breath Sounds Implantable Cardiac Device Does patient have a Pacemaker or an ICD?: No Airway Exam Known Difficult Airway: No Mallampati Class: 3 Mouth Opening: Normal (> 3cm) Thyromental Distance: Greater than 3 cm Neck Range of Motion: Full ROM Neck Circumference: Normal Teeth Condition: Normal Dentition ASA Classification ASA Score: ASA 2 Emergency Case?: No NPO Status NPO Status: NPO Clears >2 hours, Solids >8 hours Anesthesia Plan Resuscitation Status: Full Code Anesthesia Technique: Spinal Anesthesia Airway Planned: Natural Airway Pain Management: Surgeon and patient request nerve block Monitors Used: Standard Monitors Preoperative Comments:: 79 yo female for TKA. Sig PMHx: anxiety, never smoker, occ EtOH. Previous Anes: - TKA, spinal, prop sedation, phenyl gtt. adductor canal block, 15 mL 0.25.
[2024-02-18] VITALS (15 sets, daily range): BP systolic 90–151; BP diastolic 52–81; PULSE 66–84; RESP 10–22; TEMP 36.1–36.6; O2SAT 92–99; BMI 26.2
[2024-02-18] MEDS: Lactated Ringers 1,000 ML 80 ML IV (09:00)
[2024-02-18] MEDS: Celecoxib 200 MG CAP 400 MG PO (09:05)
[2024-02-18] MEDS: Gabapentin 300 MG CAP PO (09:05)
[2024-02-18] MEDS: Acetaminophen 500 MG TAB 1000 MG PO (09:05)
--- NOTE | 2024-02-18 09:16 | W.PM.DSUDISC ---
Date of service: 02/18/24 Time of Service: 09:16 Discharge Plan Disposition Patient Disposition: Home Condition: Good Discharge Details Reason For Visit: R TKR Attending Provider: Ronnell Mcintosh Primary Care Provider: Magdalena Olivares Home Meds and New Rx's Prescriptions: New acetaminophen 500 mg tablet 1,000 mg PO TID Qty: 90 3RF aspirin 81 mg tablet,delayed release (DR/EC) 81 mg PO BID Qty: 60 0RF celecoxib 200 mg capsule 200 mg PO BID Qty: 60 0RF pantoprazole 40 mg tablet,delayed release (DR/EC) 40 mg PO DAILY Qty: 30 0RF dexamethasone 4 mg tablet 4 mg PO DAILY Qty: 2 0RF gabapentin 300 mg capsule 300 mg PO QHS Qty: 14 0RF oxycodone 5 mg tablet 5 mg PO Q4H MDD 6 tabs PRN (Reason: pain) Qty: 20 0RF Continued cholecalciferol (vitamin D3) 125 mcg (5,000 unit) capsule 125 mcg PO DAILY vitamin K2 40 mcg tablet 40 mcg PO DAILY calcium 600 mg capsule 600 mg PO DAILY l-theanine 200 mg PO DAILY Qty: 180 5RF Discharge Instructions Additional Instructions: Total Knee Discharge Instructions Activity: The most important activity is to walk and to work on gentle motion (both flexion and extension). You should try to take short walks a few times a day. It is important that when resting you work on keeping the knee straight. Avoid putting a pillow behind the knee as this will encourage flexion. Work on range of motion exercises as provided by Physical Therapy. - Start outpatient physical therapy within 2 weeks. - You should wear the BERTHA hose on both legs for 2 weeks. You may remove these at night. You may also use any compression sock in place of the BERTHA hose. - Utilize [employer] to review exercises, see videos on exercises and obtain basic information pertaining to your surgery and your recovery. Dressing: Remove the Al wrap by 2 days after your surgery and put on the BERTHA stocking given to you from the hospital. Keep the surgical dressing (underneath the AL wrap) in place for at least one week. After the first week it may be removed and replaced with light gauze and tape or nothing. The wound and dressing may get wet after 3 days but avoid soaking the dressing or otherwise it will need to be changed. Many people prefer covering the dressing with cling wrap (saran wrap) to minimize it from getting soaked. If it gets wet, just pat dry. If it starts to peel off then it will need to be changed. Medications: - You should take Tylenol and anti-inflammatory Celebrex as your primary pain control medications. If the Celebrex is too expensive or not covered, please call the office for another alternative (Advil/Ibuprofen or Naproxen/Aleve) - You have been prescribed a stronger pain medication Oxycodone for breakthrough pain, take as needed as prescribed. - You have also been prescribed a stomach acid reduction agent Pantoprozole to help reduce stomach acid and reflux. - You have been prescribed Gabapentin to take at night for restlessness and nerve pain. - You will be taking Aspirin 81mg twice a day for DVT prevention unless instructed otherwise. - You have also been prescribed Decadron to take to control post-operative nausea and pain. You will start this tomorrow. - If you have constipation you should take Colace or Miralax (both [id number]). It takes most people 3-4 days to have a bowel movement. Follow-up: 2 weeks If you have any acute concerns or questions, please do not hesitate to contact the office at [phone]. You may contact Dr. Mcintosh with any questions after hours through the hospital at [phone] or on his cell phone at [phone]. Referrals: Ronnell Mcintosh MD [ [facility] STAFF PHYSICIAN] - Equipment/Supplies: Walker Activity:: Activity as Tolerated Shower/Bathe:: 72 hours Diet:: As Tolerated Discharge Orders Discharge Orders: Discharge Order (Routine); Ordered 02/18/24 Ordered By: Home Garland DS: Diagnosis Discharge Diagnosis (1) Osteoarthritis of right knee: Status: Acute
--- NOTE | 2024-02-18 09:26 | W.ANESNERVE ---
Nerve Block Single Injection Procedure Date and Time Date Performed: 02/18/24 Procedure Start: 09:35 Location Where Procedure Performed Procedure Location: Day Surgery Unit Reason Performed: Postoperative Analgesia Requesting Provider: Ronnell Mcintosh Timeout Performed Timeout Performed: Yes Monitoring Used ECG, Blood Pressure and SpO2 Sterility Sterility: Hand Hygiene, Surgical Cap, Surgical Mask, Sterile Gloves and Chlorhexidine Sedation Given During Procedure Sedation Given (Indicate Dose Given): No Sedation given Patient Mental Status Patient Mental Status: Awake Nerve Block 1st Nerve Block: Laterality: Right Block Type: Adductor Canal Ultrasound Image Saved?: Yes Needle / Catheter Used: 100mm SonoPlex II Local Anesthetic Bolus (Indicate Dose Given): Bupivacaine 0.375% Dose:: 7 mL and Bupivacaine 0.5% with Epinephrine (1:200,000) Dose:: 35 mcg Additives (Indicate Dose Given): None Ultrasound: Sterile probe cover and gel used Nerve Stimulator: Supplement to Ultrasound use and No twitch or parasthesia noted < 0.5 mA Paresthesia: None Procedure Tolerated: No Complications Procedure Outcome: Successful Performed By: Sean Morales 2nd Nerve Block: Laterality: Right Block Type: Other (anterior femoral cutaneous. ) Ultrasound Image Saved?: Yes Needle / Catheter Used: 100mm SonoPlex II Local Anesthetic Bolus (Indicate Dose Given): Bupivacaine 0.375% Dose:: 5 mL Additives (Indicate Dose Given): None and Epinephrine to make 1:200,000 (5mcg/ml) Dose:: 25 mcg Ultrasound: Sterile probe cover and gel used Nerve Stimulator: Supplement to Ultrasound use and No twitch or parasthesia noted < 0.5 mA Paresthesia: None Procedure Tolerated: No Complications Procedure Outcome: Successful Performed By: Sean Morales
[2024-02-18] MEDS: ceFAZolin 2 GM/50 ML BAG IVPB (09:57)
[2024-02-18] MEDS: TRANEXAMIC ACID/SOD. CHL. 1,000 MG/100 ML BAG 600 MG IVPB (10:07)
--- NOTE | 2024-02-18 11:27 | ROE_ITS ---
Date of service: 02/18/24 Time of Service: 10:20 Operative Note Operative Note DATE OF PROCEDURE: 02/18/24 PRE-OP DIAGNOSIS: Right Knee Osteoarthritis POST-OP DIAGNOSIS: same PROCEDURE: Right Total Knee Replacement SURGEON: Ronnell Mcintosh WORK ORDER CLERK: Lesly Garland ANESTHESIA TYPE: Spinal Refer to Anesthesia Record ESTIMATED BLOOD LOSS: 50 PATHOLOGY: none sent TOURNIQUET TIME: 0 COMPLICATIONS: None Patient was transported to: PACU Patient's condition: stable Implants: 1. Depuy Attune Cementless Cruciate Retaining Femoral Component, Size 6 2. Depuy Attune Cementless Fixed Bearing Tibial Component, Size 5 3. Depuy Attune 6x6 CR/FB Poly 4. Depuy Attune Patellar Component, Size 35 Indications: I have seen Anne in clinic for symptoms of knee arthritis, confirmed with radiographic findings. She has exhausted nonoperative methods and was having significant limitations in daily function and desired better function and less pain. I discussed the technical details of a knee replacement. I explained the risks of the procedure to include, but not limited to, bleeding, infection, pain, stiffness, fracture, damage to nerves and vessels, damage to muscles and tendons, loosening, need for repeat procedure, blood clot and cardiopulmonary demise. Despite these risks, Anne elected to proceed. Findings: There was notable arthritic changes most of the medial compartment characterized by full-thickness chondromalacia and osteophytes. Procedure Description: Anne was greeted in the preoperative holding area where the correct side was identified and marked. The consent was reviewed with the patient and signed. The history and physical was updated. All questions were answered. Preoperative medications were administered: Acetaminophen 1000mg, Celebrex 400mg, and Gabapentin 300mg. An adductor canal block was then administered by the anesthesia team in the PACU. Anne was taken back to the operating room. A spinal anesthestic was then administered. The patient was placed into the supine position on the operating room table. A nonsterile tourniquet was placed high onto the leg but only used for cementing. Posts were placed for positioning during the procedure. All bony prominences were well padded. Prophylactic antibiotics in the form of Cefazolin were administered. 1g of Tranxemic Acid was given intravenously within 30 minutes of incision. The right leg was then prepped with Chloraprep and draped in a standard fashion with impervious stockinette. A second prep with Chloraprep was performed prior to application of Iodine impregnated skin protection. A timeout to confirm correct identity, side and site, procedure, allergies, anesthesia, and medical concerns was performed. With the knee in some flexion, a midline incision was made overlying the knee. Full thickness skin flaps were raised once the extensor mechanism was encountered. These were raised medially and laterally. Any bleeding was controlled with electrocautery. Once the extensor mechanism was fully exposed, a medial parapatellar arthrotomy was performed in a flexed position. All bleeding from the arthrotomy and the geniculate arteries was coagulated. A medial subperiosteal peel was performed with electrocautery to the midcoronal plane. The fat pad was removed while keeping the patellar tendon protected. The anterior distal femur synovium was removed for later visualization. The ACL and PCL were resected and the anterior horn of the lateral meniscus was transected. The knee was then flexed with the patella everted. Large osteophytes from the femur were removed. Using a step drill, and based on preoperative templating, the femoral canal was entered. This was done with a step drill without any difficulty. The intramed ullary distal femoral cut guide was inserted, set to a 6 degree valgus cut and 9mm cut thickness. The distal femoral cut guide was then held in position and pinned. With the soft tissues protected, the distal cut was performed. This was passed over a few times to ensure a planar cut. I then turned attention to the tibia. The extramedullary guide was placed onto the leg. The distal aspect was slid medial to adjust for position of center of ankle and stay in line with shaft of the tibia. Approximately 3-5 degrees of posterior slope was kept in the proximal cutting guide. The center of the guide was aligned with the PCL. The stylus was used to assess cut thickness. The medial side, most involved side, was set for a 4mm cut. This was then held in position and pinned into place with 2 additional pins and a cross pin for stability. The medial and lateral collateral ligaments were protected and the cut was performed. With this completed, it was assessed and noted to be of appropriate dimensions. The guide was removed. A spacer block was inserted and the knee was brought into extension. The 6mm spacer block provided full extension, without hyperextension and with stability of both the medial and lateral collateral ligaments was assessed. The pins from the femur and the tibia were then removed. The distal femur was then sized. The anterior stylus was placed onto the lateral ridge of the anterior femur. This indicated a size 6 femur. The external rotation of the guide was adjusted to 3 degrees to match the epicondylar axis, perpendicular to [place]?s line. The 4-in-1 cutting guide was the placed. The posterior medial femur cut was evaluated and appeared of good thickness. The spacer block was inserted underneath the cutting guide and stability was confirmed in 90 degrees of flexion. An maycol wing was used to confirm appropriate position of the anterior cut to avoid notching. This cutting guide was ensured to be flush on the cut surface and then pinned into place with headed pins. While protecting the soft tissues, quad tendon, and collateral ligaments, the anterior and posterior cuts were performed with a saw. The central two pins were removed and the posterior and anterior chamfers were cut next. The notch-cutting guide was placed. This was pinned to lateralize the femoral component as much as possible while keeping it flush on the cut surface. This was then pinned into position. A reciprocating saw was used to make the notch cut. A rasp smoothed the cut surfaces. The medial and lateral menisci were removed. A trial femoral component was then inserted, impacted down to the cut surfaces, and the lug holes were drilled. A provisional trial tibial component was placed and the knee was brought through range of motion. There was noted to be excellent extension and flexion. There was no significant instability. The patella was tracking without thumbs. A size 6mm polyethylene component provided the best range of motion and stability with less than 2mm gapping with medial and lateral stress and full extension without significant hyperextension. The tibial cut surface was fully exposed. The tibia was then sized as a 5. The tibia had been previously marked during trialing to correspond to the center of the tibial component to help with rotation. The trial was aligned to this lesly, approximately rotated to the medial 1/3rd of the tibial tubercle. The trial was pinned into place. The tibia was prepared with a reamer and a keel punch and lug holes. The knee was then brought into extension and the patella was measured as 23mm. Using the patellar clamp and cut guide, this was resected to a flat surface with at least 13mm of thickness remaining. The size 35 patella fit the best. This was oriented and then clamped into position. The lugs were drilled. The trial components were removed. The final components were opened on the back table. The periosteal and capsular tissues, especially posteriorly, around the knee were then systematically injected with a periarticular cocktail consisting of 246mg of Ropivacaine, 0.5mg of Epinephrine, 0.08mg of Clonidine, and 30mg of Ketorolac, diluted to 100cc. On the back table, with the implants opened, the cement was mixed. One batch of high viscosity cement was prepared with vacuum assistance. After the cement was ready a small amount was placed on the cut surface of the patella and the patellar button was clamped into position and held. While the cement was hardening, the cementless knee components were placed. Starting with the tibial component, the tibia was subluxed anteriorly and the lug holes of the component were lined up. The tibia was then impacted with an impactor and mallet until the tibial component was in contact with the tibia. The final polyethylene component was inserted. Then, the femoral component was inserted. The lug holes were aligned and the component was impacted into position. The knee was irrigated with Surgiphor Betadine solution. This was allowed to sit in the knee for 3 minutes and then it was irrigated out with saline. After the cement had finally cured, approximately 15min, the clamp was removed from the patella and the knee was taken through range of motion. The patella was tracking with a no-thumbs technique. The capsule was then reapproximated with a No. 1 Vicryl at multiple locations. The capsule was finally closed with a No. 2 Stratafix, barbed suture. The second dosing of 1g TXA was started. Deep tissues were then reapproximated with 0 Vicryl and 2-0 Vicryl. The skin was closed with a running 3-0 Monocryl in a subcuticular fashion. This was reinforced with skin glue. A Mepilex silver dressing was applied along with a [id number] PIO wrap. A CryoCuff was appli ed. Anne was transferred to the hospital bed without difficulty an suffering no apparent complication. Anne has a good prognosis. Physical therapy will start today and without restrictions, weight-bearing as tolerated. Aspirin 81mg BID will be used for DVT prophylaxis.
--- NOTE | 2024-02-18 11:39 | W.ANESPOSTOP ---
Postoperative Evaluation Date, Time and Location Date Performed: 02/18/24 Time Performed: 11:39 Patient Location: PACU Vital Signs Most Recent Imported Vital Signs: Most Recent Vital Signs Temp Pulse Resp BP Pulse Ox 36.5 C 73 15 134/71 95 02/18/24 11:30 02/18/24 09:28 02/18/24 09:28 02/18/24 09:28 02/18/24 09:28 Pain Score Most Recent Pain Score: Most Recent Pain Score Pain Level 0 02/18/24 11:30 Assessment Mental Status: Awake (Alert & Oriented to Patient Baseline) Airway and Respiratory Function: Patent airway with normal (patient baseline) respiratory exam Cardiovascular Function: Hemodynamically Stable Hydration Status: Adequately Hydrated Nausea & Vomiting: No Nausea or Vomiting Pain: Pain is tolerable per patient (spinal still waning. ) Peripheral Nerve Block: Regional nerve block not resolved at time of post operative discharge
[2024-02-18] MEDS: oxyCODONE 5 MG TAB PO (12:24)
--- NOTE | 2024-02-18 13:40 | PT.INIE ---
PT Notes Visit Reasons: R TKR Physical Therapy Day Surgery Initial Evaluation Date: 02/18/24 Referring Doctor: Dr. Mcintosh PT Orders: PT CONSULT: s/p right TKA Precautions: WBAT Patient Profile/Admitting Diagnosis: Patient seen for PT consult in Day Surgery Unit following right TKA, post-op day #0. Social History/Home Situation: Resides in multi-level home with her , who is present and supportive at time of consultation. Has 4 SUSAN home, then can stay on first floor. Equipment Owned/DME: [facility] Subjective: Anne states that her knee is feeling pretty good. She's anxious to get up to use the restroom. Objective: General Observation: Resting in bed with cryocuff and Al wrap to right knee. IV to RUE. Mental Status: A&Ox3 Pain: 5/10 ROM: Right Upper Extremity: WFL Left Upper Extremity: WFL Right Lower Extremity: Demonstrates active knee motion 0-90*. Left Lower Extremity: WFL Strength: Right Upper Extremity: WFL Left Upper Extremity: WFL Right Lower Extremity: Able to perform SLR with extension lag. Able to pump ankle and wiggle toes. Left Lower Extremity: Hip flexion 4/5. Quads 4+/5. Ankle DF 5/5. Sensation: intact distally Bed Mobility/Transfers: Supine to sit : independent Sit to stand : supervision with cues for hand placement. Able to transfer from bed, chair and low toilet all with supervision only. Stand to sit: supervision and cues for hand placement. Gait: Ambulates 100'x2 with FWW and CGA. Requires cues for equipment management and safety. Requires cues to position body inside the walker, although responds favorably to cues. Additionally requires cues to maintain both hands to walker during ambulation. Stairs: Manages therapeutic stairs 6x2 and 4x3 with bilat rails, cues for technque, CGA only. Balance: Static Sitting: good Dynamic Sitting: good Static Standing: good Dynamic Standing: fair Informed Consent/Education: Patient instructed in purpose of PT consult. Packet containing TKA exercise protocol has been given to patient. Education and training on initial set of exercises that can be done at home have been completed with patient. Treatment: Initial Evaluation (50392) Therapeutic Exercises ([id number]): Instructed in the following exercises: Ankle pumps x 1 minute Quad sets x 1 minute Glute sets x 1 minute Supine heel slide 10x seated march 10x Advised to complete frequent, short walks in the home, resting and icing between. Assessment: Patient presents with clinical signs and symptoms consistent with current/admitting diagnoses that have resulted to mobility limitations, gait instability, generalized weakness, and impairment of motor control as demonstrated by the following impairment level findings: 1. Decreased strength to right knee major muscle groups 2. Impaired dynamic balance 3. Limitation of joint range of motion in right knee Impairments are contributing to the following functional limitations: 1. Inability to safely ambulate without assistive device 2. Increase completion time for mobility ADL performance 3. Increased fall risk Patient is assessed as low complexity based on the following: History: 79-year-old female with impairment level findings, functional limitations, and past medical history as indicated above Examination: Demonstrable impairment in strength, balance, and mobility level with underlying impairments and functional limitations as documented above Presentation: stable Decision Making: low Goals: N/A. PT evaluation only for functional mobility training using recommended AD and for HEP instruction. Plan of Care/Treatment Plan: N/A. PT evaluation only for functional mobility training using recommended AD and for HEP instruction. DISCHARGE RECOMMENDATIONS: Home with outpatient PT TREATMENT CODE/TIME: [id number] ([id number], [id number]) Ade Soria, PT, DPT [facility] Thank you for the opportunity to participate in the care of this patient. Please sign an return this page within 30 days if you agree with the above POC. Thank you! Physician Signature Date [facility] All Active Problems Osteoarthritis of right knee (Acute) Urinary incontinence (Acute) Pelvic prolapse (Acute) 07/2023. 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 Will refer to [facility] [place] [facility]. Left carpal tunnel syndrome (Acute) Right carpal tunnel syndrome (Acute) Sciatica of left side (Acute) Hyperlipidemia (Acute) Osteoporosis (Chronic) Hips. Osteopenia spine Encounter for annual physical exam (Acute) CPE yearly call earlier for new or concerning s/s Anxiety (Acute 12/15/12) Dizziness and giddiness (Acute 10/05/12) Hemorrhoids (Acute 12/15/12) Surgical History S/P anterior colporrhaphy (12/02/23) Partial vaginectomy, LeFort colpoclesis, posterior colpoperineorrhaphy, trans-obsturator mid urethral polypropylene sling History of total left knee replacement (TKR) (02/20/22)
== END 2024-02-18 14:40 | disposition home or self-care (01) ==
PROVIDERS: PCP Nurse Practitioner Family; Visit Provider Student in an Organized Health Care Education/Training Program
PROC: (CPT 27447; principal; 2024-02-18 10:00)
DX: M17.11 Unilateral primary osteoarthritis, right knee (principal); E78.5 Hyperlipidemia, unspecified; M81.0 Age-related osteoporosis without current pathological fracture; M54.32 Sciatica, left side
CPT/HCPCS: 27447; 76942; 97110; 97161; C1776; J0171; J0665; J0690; J1100; J2371; J2401; J2405; J2704

== ENCOUNTER 2024-03-04 15:59 | Outpatient (CLI) | payer MEDICARE, SELFPAY ==
--- NOTE | 2024-03-04 13:15 | DI.RAD_ITS ---
Exam(s) XR KNEE RT 1V XR STANDING ALIGNMENT EXAM: XR STANDING ALIGNMENT and XR knee RT 1 V CLINICAL HISTORY: 1ST POST OP S/P R TKA. TECHNIQUE: 2D digital imaging was performed. Five images were obtained. COMPARISON: CR XR KNEE LT 1V from 03/08/2022 CR XR STANDING ALIGNMENT from 03/08/2022 CR XR KNEE LT 2V AP,LAT from 02/21/2023 CR XR KNEE RT 4V AP,LAT,BHUPINDER,PAT from 01/12/2024 FINDINGS: BONES: The hips are well maintained. The patient has bilateral total knee replacements which appears stable. There is a stable lucency at the bone prosthetic interface in the proximal tibia of the lef t knee. The ankles are well maintained.The right lower extremities almost 2 cm shorter than the left lower extremity. SOFT TISSUE: Normal. IMPRESSION: Bilateral total knee replacements. Please see the above discussion for complete details. DATA REPOSITORY: RADIATION DOSE DELIVERED:
== END 2024-03-04 16:00 | disposition home or self-care (01) ==
LOC: DIORS 15:59
PROVIDERS: PCP Nurse Practitioner Family; Referring Provider Nurse Practitioner Family; Visit Provider Student in an Organized Health Care Education/Training Program
DX: Z96.651 Presence of right artificial knee joint (principal); Z47.1 Aftercare following joint replacement surgery
CPT/HCPCS: 73560; 77073

== ENCOUNTER → 2024-04-02 11:14 | Outpatient (BNVA) | payer MEDICARE, SELFPAY | PROVIDERS: PCP Nurse Practitioner Family | DX: Z47.1 Aftercare following joint replacement surgery (principal); Z96.651 Presence of right artificial knee joint ==

== ENCOUNTER → 2024-05-13 10:43 | Outpatient (BNVA) | payer MEDICARE, SELFPAY | PROVIDERS: PCP Nurse Practitioner Family; Referring Provider Nurse Practitioner Family; Visit Provider Student in an Organized Health Care Education/Training Program | DX: Z47.1 Aftercare following joint replacement surgery (principal); Z96.651 Presence of right artificial knee joint | CPT/HCPCS: 99024 ==

== ENCOUNTER 2025-01-06 01:03 | Outpatient (CLI) | payer MEDICARE, SELFPAY ==
[2025-01-06 14:09] LABS: Anion Gap 9.5 mmol/L (3-11); BUN 20 mg/dL (7-18); CO2 25.5 mmol/L (21.0-32.0); Calcium 9.3 mg/dL (8.5-10.1); Calculated LDL 166 mg/dL (<100); Chloride 104 mmol/L (98-107); Cholesterol 249 mg/dL (<200); Estimated GFR 58.02 (mL/min/1.73m2); Glucose 103 mg/dL (74-106); HDL Cholesterol 45 mg/dL (>or=50); Potassium 4.1 mmol/L (3.5-5.1); Sodium 139 mmol/L (136-145); TSH (W/Ref FT4) 2.63 uIU/mL (0.36-3.74); Triglyceride 191 mg/dL (<150)
[2025-01-06 14:26] LABS: Vitamin D 25 Total 114 ng/mL (30-100)
[2025-01-07 15:10] LABS: Measles IgG Antibody Equivocal (See Note)
[2025-01-07 16:04] LABS: Hemoglobin A1C 5.8 % (<5.7)
== END 2025-01-06 01:04 | disposition home or self-care (01) ==
LOC: LOS 01:03
PROVIDERS: PCP Nurse Practitioner Family; Visit Provider Nurse Practitioner Family
DX: M81.0 Age-related osteoporosis without current pathological fracture (principal); E78.5 Hyperlipidemia, unspecified; R73.01 Impaired fasting glucose; Z86.19 Personal history of other infectious and parasitic diseases
CPT/HCPCS: 36415; 80048; 80061; 82306; 83036; 84443; 86765

== ENCOUNTER 2025-01-14 00:51 | Outpatient (CLI) | payer MEDICARE, SELFPAY ==
[2025-01-17 10:03] LABS: Measles IgG Antibody Negative (See Note)
== END 2025-01-14 00:52 | disposition home or self-care (01) ==
LOC: LOS 00:51
PROVIDERS: PCP Nurse Practitioner Family; Visit Provider Nurse Practitioner Family
DX: Z86.19 Personal history of other infectious and parasitic diseases (principal)
CPT/HCPCS: 36415; 86765

== ENCOUNTER 2025-02-17 11:19 | Outpatient (CLI) | payer MEDICARE, SELFPAY ==
--- NOTE | 2025-02-17 11:00 | DI.RAD_ITS ---
Exam(s) XR KNEE RT 2V AP,LAT EXAM: XR KNEE RT 2V AP,LAT INDICATION: F/U RIGHT TKA. COMPARISON: CR XR STANDING ALIGNMENT from 03/04/2024 CR XR KNEE RT 1V from 03/04/2024 TECHNIQUE: 2D digital imaging was performed. Two views. FINDINGS: Stable alignment right knee prosthesis. Decreased soft tissue swelling. No new abnormalities. DATA REPOSITORY: RADIATION DOSE DELIVERED:
== END 2025-02-17 11:20 | disposition home or self-care (01) ==
LOC: DIORS 11:19
PROVIDERS: PCP Nurse Practitioner Family; Visit Provider Physician Assistant
DX: Z47.1 Aftercare following joint replacement surgery (principal); Z96.651 Presence of right artificial knee joint; M76.31 Iliotibial band syndrome, right leg
CPT/HCPCS: 99213; 73560

== ENCOUNTER → 2025-05-26 02:05 | Outpatient (CLI) | payer MEDICARE, SELFPAY ==
--- NOTE | 2025-05-26 06:45 | DI.DEXA_ITS ---
Exam(s) XR DEXA BONE DENSITY W/WO LUIS EDUARDO EXAM: XR DEXA BONE DENSITY W/WO LUIS EDUARDO CLINICAL HISTORY: osteoporosis,postmenopausal status,z78.0 TECHNIQUE: Routine DEXA evaluation of the lumbar spine, hip, or forearm. COMPARISON: CR XR DEXA BONE DENSITY W/WO LUIS EDUARDO from 04/20/2019 FINDINGS: Performed on a [employer] unit. Lateral image: No compression fracture evident. Lumbar Spine total T-score: -0.6 which is in normal range. Prior reading in April 2019 was -1.0 Hip total T-score:-3.0 which is in osteoporosis range. Prior reading in 2019 was -2.6, also in the osteoporosis range. Independent reading at the level of the femoral neck yields T-score of -3.0 which is osteoporosis range. Prior reading at the neck level in 2019 was -2.6, also in osteoporosis range Forearm total T-score: -2.6 which is osteoporosis range. The prior reading in 2019 was -2.2 which was osteopenia range. IMPRESSION: Bone mineral density measures in the osteoporosis range for hip and wrist- forearm. Fracture risk is high at these levels. Bone mineral density is within normal range for the lumbar spine indicating that fracture risk at the lumbar spine level is low. Note: Any spine fracture indicates 5x risk for subsequent spine fracture and 2x risk for subsequent hip fracture. World Health Organization criteria for BMD interpretation classify patients: Normal...... T- Score at or above -1.0 Osteopenic... T- Score between -1.0 and -2.5 Osteoporosis... T-Score at or below -2.5
== END ==
PROVIDERS: PCP Nurse Practitioner Family; Visit Provider Nurse Practitioner Family
DX: Z78.0 Asymptomatic menopausal state (principal)
CPT/HCPCS: 77080

== ENCOUNTER → 2025-07-08 09:29 | Outpatient (BNVA) | payer MEDICARE, SELFPAY | PROVIDERS: PCP Nurse Practitioner Family; Referring Provider Nurse Practitioner Family; Visit Provider Physician Assistant | DX: Z47.1 Aftercare following joint replacement surgery (principal); Z96.651 Presence of right artificial knee joint; M76.31 Iliotibial band syndrome, right leg | CPT/HCPCS: 99213 ==